=== PATIENT | female | born 1990 | race Caucasian/White ===

== ENCOUNTER 2020-12-23 00:41 | Inpatient (IN) | payer MEDICAID, SELFPAY ==
[~2020-12-23] VITALS: Ht 165.1 cm; Wt 68.7 kg
[2020-12-23 01:08] VITALS: BP_SYST 116
--- NOTE | 2020-12-23 01:15 | NUR ---
Patient to ER bed 1, to gown for evaluation. Side rails up.
[2020-12-23] MEDS ORDERED: MORPHINE 4 MG INJ. 4 MG/ML VIAL IVP ONE ×2 (01:30→02:30)
[2020-12-23] MEDS ORDERED: ONDANSETRON HCL 4 MG/2 ML VIAL IVP ONE ×2 (01:30→02:30)
[2020-12-23] MEDS ORDERED: PANTOPRAZOLE SODIUM 40 MG/VIAL (PROTONIX) IVP ONE (01:30)
--- NOTE | 2020-12-23 01:31 | NUR ---
PT ARRIVED TO ER WITH COMPLAINTS OF ABDOMINAL SINCE 2199. 11/23 PAIN. PT STATES IT IS AN ULCER. SHE HAS HAD THIS ULCER FOR 3 MONTHS. -N/V/D. PT IS IN VISIBLE PAIN.
--- NOTE | 2020-12-23 01:59 | NUR ---
# 20 gauge angiocath placed to LAC. Use of asceptic technique. Opsite placed over site. Blood return noted. Blood for lab drawn from site. Flushed with 10 cc of normal saline. No evidence of infiltration noted. Patient tolerated well.
--- NOTE | 2020-12-23 02:00 | NUR ---
US AT BEDSIDE
[2020-12-23 02:25] LABS: BILIRUBIN,URINE NEGATIVE (NEGATIVE); BLOOD, URINE NEGATIVE (NEGATIVE); CLARITY/URINE CLOUDY (CLEAR); COLOR,URINE YELLOW (YELLOW); GLUCOSE,URINE NEGATIVE (NEGATIVE); KETONES,URINE NEGATIVE (NEGATIVE); LEUKOCYTE ESTERASE ,URINE NEGATIVE (NEGATIVE); NITRITE, URINE NEGATIVE (NEGATIVE); PROTEIN URINE NEGATIVE (NEGATIVE); UROBILINOGEN,URINE 0.2 (0.2-1.0)
[2020-12-23 02:31] LABS: BASOPHILS % (AUTO) 0.3 % (0.0-2.0); EOSINOPHILS # (AUTO) 0.1 K/uL (0.0-0.4); EOSINOPHILS % (AUTO) 0.9 % (0.0-4.0); HEMATOCRIT 36.4 % (36-48); LYMPHOCYTES # (AUTO) 2.9 K/uL (1.0-5.5); LYMPHOCYTES % (AUTO) 25.7 % (20.5-51.5); MEAN CORPUSCULAR HEMOGLOBIN 31 pg (27-31); MEAN CORPUSCULAR HGB CONC 33 % (32-36); MEAN CORPUSCULAR VOLUME 94 fL (79.0-98.0); MONOCYTES # (AUTO) 0.5 K/uL (0.0-1.0); MONOCYTES % (AUTO) 4.1 % (1.7-9.3); NEUTROPHILS # (AUTO) 7.7 K/uL (1.8-7.7); PLATELET COUNT (AUTO) 318 K/uL (130-430); RED BLOOD CELL COUNT(AUTO) 3.89 MIL/uL (4.2-6.2); RED CELL DISTRIBUTION WIDTH 12.8 % (9.0-15.0); WHITE BLOOD COUNT (AUTO) 11.2 K/uL (4.8-10.8)
[2020-12-23 02:35] LABS: CREATININE 0.95 mg/dL (0.55-1.30); POTASSIUM 3.3 mmol/L (3.5-5.1)
[2020-12-23 02:40] LABS: ALBUMIN 3.8 g/dL (3.4-4.8); TOTAL BILIRUBIN 0.2 mg/dL (0.0-1.0)
[2020-12-23] MEDS ORDERED: PRO40 PO (03:03)
[2020-12-23] MEDS ORDERED: FAMO20TA8 PO (03:03)
--- NOTE | 2020-12-23 03:03 | NUR ---
PT IS FULLCODE
--- NOTE | 2020-12-23 03:04 | NUR ---
Medication reconciliation completed with information provided by PATIENT. Any prior medication reconciliation on file was reviewed and corrected.
--- NOTE | 2020-12-23 03:04 | NUR ---
BELONGINGS LIST DONE
--- NOTE | 2020-12-23 04:50 | NUR ---
Patient will be admitted to care of . Admitted to TELE unit. Will go to room 118A. Belongings list completed. Complete and up to date summary report printed. SBAR report to be given at bedside with opportunity for questions.
[2020-12-23] MEDS ORDERED: ACETAMINOPHEN 325 MG TABLET PO PRN (05:00)
[2020-12-23] MEDS ORDERED: ONDANSETRON HCL 4 MG/2 ML VIAL IVP PRN ×2 (05:00→18:30)
[2020-12-23] MEDS ORDERED: MORPHINE 4 MG INJ. 4 MG/ML VIAL IVP PRN ×2 (05:00→19:15)
--- NOTE | 2020-12-23 05:54 | NUR ---
Transfer to TELE via ACLS protocol. Licensed nurse present. IV present no signs or symptoms of infiltration.
--- NOTE | 2020-12-23 06:12 | NUR ---
Admission Note Received patient from ER with diagnosis of CHOLELITHIASIS. Initial Plan of Care discussed-patient verbalized understanding. Oriented to room, call light, pain management and safety.
[2020-12-23 06:29] VITALS: BP_SYST 105
[2020-12-23 07:34] VITALS: BP_SYST 118
[2020-12-23] MEDS: NACL 0.9% 1,000 ML IV SCH ×3 (07:34→20:42)
--- NOTE | 2020-12-23 07:42 | NUR ---
CONSULTATION PAGED/CALLED Reason for Consultation: [] [place] Person Who was Notified: [] DR EDDIE HEART Consulting Physician: [] DR EDDIE HEART, BICYCLE I ASSEMBLER FOR DR Adry ANDERSON Bee Robber Specialty: [] GEN SURGEON Ordering Physician: [] DR IBARRA
--- NOTE | 2020-12-23 08:00 | NUR ---
Patient denies any pain , kept NPO with IV fluid for hydration.
[2020-12-23 08:53] LABS: HCG,QUAL RESULT NEGATIVE (NEGATIVE)
[2020-12-23] MEDS ORDERED: KCL 20 mEq in 100 mL (PREMIX) 100 ML IV ONE (09:00)
[2020-12-23] MEDS: PIPERACILLIN/TAZO 3.375/DEX-IS 50 ML IV SCH ×3 (09:16→17:45)
[2020-12-23] MEDS: PANTOPRAZOLE SODIUM 40 MG/VIAL (PROTONIX) IVP SCH (09:44)
[2020-12-23 09:56] LABS: BASOPHILS % (AUTO) 0.2 % (0.0-2.0); EOSINOPHILS % (AUTO) 0.1 % (0.0-4.0); HEMATOCRIT 37.3 % (36-48); HEMOGLOBIN 12.6 g/dL (12.0-16.0); LYMPHOCYTES # (AUTO) 1.9 K/uL (1.0-5.5); LYMPHOCYTES % (AUTO) 19.6 % (20.5-51.5); MEAN CORPUSCULAR HEMOGLOBIN 31 pg (27-31); MEAN CORPUSCULAR HGB CONC 34 % (32-36); MEAN CORPUSCULAR VOLUME 93 fL (79.0-98.0); MONOCYTES # (AUTO) 0.5 K/uL (0.0-1.0); MONOCYTES % (AUTO) 5.4 % (1.7-9.3); NEUTROPHILS # (AUTO) 7.2 K/uL (1.8-7.7); NEUTROPHILS % (AUTO) 74.7 % (40.0-70.0); PLATELET COUNT (AUTO) 297 K/uL (130-430); RED BLOOD CELL COUNT(AUTO) 4.04 MIL/uL (4.2-6.2); RED CELL DISTRIBUTION WIDTH 12.7 % (9.0-15.0); WHITE BLOOD COUNT (AUTO) 9.7 K/uL (4.8-10.8)
[2020-12-23 10:14] LABS: ALBUMIN 3.4 g/dL (3.4-4.8); CALCIUM 8.9 mg/dL (8.4-11.0); CREATININE 0.83 mg/dL (0.55-1.30); POTASSIUM 3.9 mmol/L (3.5-5.1); TOTAL BILIRUBIN 0.4 mg/dL (0.0-1.0)
[2020-12-23 10:18] LABS: INR 0.9 (0.8-1.2)
[2020-12-23 12:43] VITALS: BP_SYST 111
--- NOTE | 2020-12-23 14:50 | NUR ---
Patient agreed for surgery consent given.
--- NOTE | 2020-12-23 16:00 | NUR ---
Pre operative checklist completed.
[2020-12-23 17:40] VITALS: BP_SYST 122
--- NOTE | 2020-12-23 17:51 | NUR ---
To surgery department for lap vs open cholecystectomy endorsed to OR nurse.
[2020-12-23] MEDS ORDERED: METOCLOPRAMIDE HCL 10 MG/2 ML VIAL IVP PRN (18:30)
[2020-12-23] MEDS ORDERED: fentaNYL CITRATE/PF 100 MCG/2 ML AMP IVP PRN (18:30)
[2020-12-23] MEDS ORDERED: NS IRRIG SOLN 1000 ML IR ONE (19:15)
[2020-12-23] MEDS ORDERED: LR 1,000 ML IV.SOLN IV ONE (19:15)
[2020-12-23] MEDS ORDERED: GLYCOPYRROLATE 0.2 MG/ML VIAL ONE (19:15)
[2020-12-23] MEDS ORDERED: MIDAZOLAM HCL 5 MG/ML VIAL (VERSED) IV ONE (19:15)
[2020-12-23] MEDS ORDERED: BUPIVACAINE /EPINEPHRINE/PF 0.25% 30 ML VIAL INJ ONE (19:15)
[2020-12-23] MEDS ORDERED: PROPOFOL 200MG/ 20ML VIAL (DIPRIVAN) IV ONE (19:15)
[2020-12-23] MEDS ORDERED: ROCURONIUM BROMIDE 10 MG/ML (ZEMURON) ONE (19:15)
[2020-12-23] MEDS ORDERED: SEVOFLURANE 15 MIN GAS INH ONE (19:15)
[2020-12-23] MEDS ORDERED: fentaNYL CITRATE/PF 100 MCG/2 ML AMP ONE ×3 (19:15→20:01)
[2020-12-23] MEDS ORDERED: PHENYLEPHRINE HCL 10 MG/ML VIAL (NEOSYNEPHRINE) ONE (19:15)
[2020-12-23] MEDS ORDERED: HYDROcodone/ACETAMIN 5-325 MG TAB (NORCO/ VICODIN) PO PRN (19:15)
[2020-12-23] MEDS: fentaNYL CITRATE/PF 100 MCG/2 ML AMP IVP PRN ×2 (19:19→19:44)
--- NOTE | 2020-12-23 19:30 | NUR ---
OPENING NOTE PATIENT IS NOT IN THE UNIT OUT FOR SURGERY.
--- NOTE | 2020-12-23 20:10 | NUR ---
PATIENT BACK INTO UNIT RECEIVED REPORT FROM OR NURSE ASSESSED FIRST VITALS ALL WITHIN NORMAL RANGE PATIENT HAS PAIN SCALE OF 7 ON A NUMERIC SCALE OF 0-10 WILL PROVIDE BREAKTHROUGH PAIN MEDICATION. EXPLAINED TO PATIENT WILL PROVIDE BREAKTHROUGH PAIN MEDICATION FOR LOWERING PAIN SCALE.
[2020-12-23] MEDS: HYDROmorphone 2 MG/ML VIAL IVP PRN (20:53)
[2020-12-23 21:03] VITALS: BP_SYST 137
--- NOTE | 2020-12-23 22:46 | NUR ---
SPOKE TO ; DR. IBARRA RECEIVED ORDER FOR ICE CHIPS NOW AND CLEAR LIQUID DIET STARTING TOMORROW.
--- NOTE | 2020-12-24 | NUR ---
PATIENT IS RESTING IN BED NO SIGNS OF DISTRESS. BED IS LOW AND CALL LIGHT IS IN REACH.
[2020-12-24] MEDS: HYDROmorphone 2 MG/ML VIAL IVP PRN (01:02)
[2020-12-24] MEDS: PIPERACILLIN/TAZO 3.375/DEX-IS 50 ML IV SCH ×4 (01:06→18:34)
[2020-12-24 01:08] VITALS: BP_SYST 119
--- NOTE | 2020-12-24 04:00 | NUR ---
PATIENT IS COMFORTABLE ASLEEP NO SIGNS OF DISTRESS. BED IS LOW AND CALL LIGHTS IN REACH.
[2020-12-24] MEDS: NACL 0.9% 1,000 ML IV SCH ×3 (06:30→18:34)
--- NOTE | 2020-12-24 06:49 | NUR ---
CLOSING NOTE PATIENT IS ASLEEP COMFORTABLE NO SIGNS OF PAIN OR DISTRESS. BREATHING ROOM AIR. IV SITE PATENT AND INTACT. BED IS LOW AND CALL LIGHTS IN REACH. WILL ENDORSE TO NEXT SHIFT TO MONITOR PAIN.
[2020-12-24 08:00] VITALS: BP_SYST 114
[2020-12-24] MEDS: PANTOPRAZOLE SODIUM 40 MG/VIAL (PROTONIX) IVP SCH (08:18)
[2020-12-24] MEDS: HYDROcodone/ACETAMIN 5-325 MG TAB (NORCO/ VICODIN) PO PRN ×3 (08:18→21:36)
[2020-12-24 08:40] LABS: ALBUMIN 3.4 g/dL (3.4-4.8); BASOPHILS % (AUTO) 0.2 % (0.0-2.0); CALCIUM 8.5 mg/dL (8.4-11.0); CREATININE 0.99 mg/dL (0.55-1.30); EOSINOPHILS % (AUTO) 0.2 % (0.0-4.0); HEMATOCRIT 38.6 % (36-48); HEMOGLOBIN 12.9 g/dL (12.0-16.0); LYMPHOCYTES # (AUTO) 1.5 K/uL (1.0-5.5); LYMPHOCYTES % (AUTO) 17.4 % (20.5-51.5); MEAN CORPUSCULAR HEMOGLOBIN 31 pg (27-31); MEAN CORPUSCULAR HGB CONC 34 % (32-36); MEAN CORPUSCULAR VOLUME 93 fL (79.0-98.0); MONOCYTES # (AUTO) 0.5 K/uL (0.0-1.0); MONOCYTES % (AUTO) 6.2 % (1.7-9.3); NEUTROPHILS # (AUTO) 6.6 K/uL (1.8-7.7); PLATELET COUNT (AUTO) 296 K/uL (130-430); POTASSIUM 3.8 mmol/L (3.5-5.1); RED BLOOD CELL COUNT(AUTO) 4.13 MIL/uL (4.2-6.2); RED CELL DISTRIBUTION WIDTH 12.7 % (9.0-15.0); TOTAL BILIRUBIN 1.1 mg/dL (0.0-1.0); WHITE BLOOD COUNT (AUTO) 8.7 K/uL (4.8-10.8)
--- NOTE | 2020-12-24 10:00 | NUR ---
assess pt is a/a/ox4 ls cta bs pos in all four quad abd soft but tender to touch did noted four bandaids on abd wall dry and intact s/p lap jesús ble's neg for edema csm good pulses present has an iv site rec'ing ns at 125ml/hr was med time one with norco one tab for abd pain teaching given denies allergy med was effective does void via brp and ate breakfast 50% cl liquid diet monalisa well comfort and safety maintained
[2020-12-24 12:00] VITALS: BP_SYST 122
--- NOTE | 2020-12-24 13:26 | NUR ---
GEN SURGEON, DR Adry ANDERSON WAS CALLED, RE: CLEARANCE TO DISCHARGE PT TO HOME. SPOKE TO KIA.
--- NOTE | 2020-12-24 14:29 | NUR ---
CONSULTATION PAGED/CALLED Reason for Consultation: [] ELEVATED LFT AND BILIRUBIN S/P LAP JEWELL Person Who was Notified: [] [place] Consulting Physician: [] DR LAROSE Jig Grinder Set Up Operator Specialty: [] GI Ordering Physician: [] DR TAPIA PA
[2020-12-24 16:00] VITALS: BP_SYST 118
--- NOTE | 2020-12-24 19:10 | NUR ---
CHANGE OF SHIFT; endorsed by day shift. S/P pilar espinosa 12/23. no distress. call light at bedside.
--- NOTE | 2020-12-24 20:45 | NUR ---
NOTES: pt. awake with visitor at bedside. VS checked. checked abdomen with small iincision with band aids. IV on left antecubital. intructed on deeop breathing. pt. ambulating already. surgeon did not see the pt. suppose to be for discharge if ok nwith the surgeon. pt. needs attended.
[2020-12-24 21:00] VITALS: BP_SYST 113
--- NOTE | 2020-12-24 21:40 | NUR ---
NOTES: pt. medicated for c/o post op abdominal pain, [place] po given.
--- NOTE | 2020-12-25 00:15 | NUR ---
NOTES: pt. sleeping when checked. IV antibiotic due given. repositioned self.
[2020-12-25 00:16] VITALS: BP_SYST 106
[2020-12-25] MEDS: PIPERACILLIN/TAZO 3.375/DEX-IS 50 ML IV SCH ×4 (00:32→17:09)
--- NOTE | 2020-12-25 04:00 | NUR ---
NOTES: pt. sleeping. condition observed, continue to monitor.
[2020-12-25] MEDS: NACL 0.9% 1,000 ML IV SCH ×3 (04:57→22:40)
[2020-12-25] MEDS: HYDROcodone/ACETAMIN 5-325 MG TAB (NORCO/ VICODIN) PO PRN (05:04)
--- NOTE | 2020-12-25 05:10 | NUR ---
NOTES: pt. awakened, ambulated to the restroom. medicated for c/o post op pain.
--- NOTE | 2020-12-25 06:40 | NUR ---
CLOSING NOTES; pt. went back to sleep, noted relief from pain. possible discharge if ok with the surgeon. for further care and assist. will endorse to incoming shift.
--- NOTE | 2020-12-25 08:00 | NUR ---
AAOx4, RA, no s/s of distress. HOB elevated. Patient has an IV on the L AC, intact and patent.. No s/s of infection or infiltration. Educated patient on plan of care and call light use. Fall/safety/isolation precaution. maintained
[2020-12-25] MEDS: PANTOPRAZOLE SODIUM 40 MG/VIAL (PROTONIX) IVP SCH (08:27)
[2020-12-25 12:00] VITALS: BP_SYST 109
[2020-12-25 13:40] LABS: ALBUMIN 2.9 g/dL (3.4-4.8); CALCIUM 8.2 mg/dL (8.4-11.0); CREATININE 0.91 mg/dL (0.55-1.30); POTASSIUM 3.6 mmol/L (3.5-5.1); TOTAL BILIRUBIN 0.3 mg/dL (0.0-1.0)
--- NOTE | 2020-12-25 13:45 | NUR ---
Nutrition Note RD was consulted by pt's primary RN regarding pt's current clear liquid diet order which has been in place for the past 2 days. He stated that pt is POD 2 s/p lap jesús. RD suggested to contact attending or surgeon regarding diet advancement to low-fat diet, and RD will provide low-fat nutrition education at bedside today. Pt was screened at moderate nutritional risk per clinical nutrition policies and procedures. Nutrition Assessment is due between 12/26-12/28.
[2020-12-25 16:15] VITALS: BP_SYST 107
--- NOTE | 2020-12-25 18:00 | NUR ---
Dr. Call ordered patient can be discharged on surgical standpoint; Dr. Mcdonnell is called if the patient can be discharged on GI standpoint, but he insisted that the patient is not clear due to elevated LFTs, and HIDA will still be needed on Sunday. Discharge is held per Charge nurse.
[2020-12-25 21:00] VITALS: BP_SYST 117
[2020-12-26 01:00] VITALS: BP_SYST 125
[2020-12-26] MEDS: PIPERACILLIN/TAZO 3.375/DEX-IS 50 ML IV SCH ×3 (03:43→12:03)
[2020-12-26] MEDS: NACL 0.9% 1,000 ML IV SCH (03:45)
[2020-12-26 08:00] VITALS: BP_SYST 104
[2020-12-26 08:07] LABS: PROTHROMBIN TIME 10.4 SECS (9.5-12.5)
[2020-12-26 08:20] LABS: BASOPHILS % (AUTO) 0.2 % (0.0-2.0); EOSINOPHILS # (AUTO) 0.1 K/uL (0.0-0.4); EOSINOPHILS % (AUTO) 1.7 % (0.0-4.0); HEMATOCRIT 34.7 % (36-48); HEMOGLOBIN 11.7 g/dL (12.0-16.0); LYMPHOCYTES % (AUTO) 30.2 % (20.5-51.5); MEAN CORPUSCULAR HEMOGLOBIN 31 pg (27-31); MEAN CORPUSCULAR HGB CONC 34 % (32-36); MEAN CORPUSCULAR VOLUME 93 fL (79.0-98.0); MONOCYTES # (AUTO) 0.5 K/uL (0.0-1.0); MONOCYTES % (AUTO) 8.1 % (1.7-9.3); NEUTROPHILS # (AUTO) 3.9 K/uL (1.8-7.7); NEUTROPHILS % (AUTO) 59.8 % (40.0-70.0); PLATELET COUNT (AUTO) 256 K/uL (130-430); RED BLOOD CELL COUNT(AUTO) 3.73 MIL/uL (4.2-6.2); RED CELL DISTRIBUTION WIDTH 12.6 % (9.0-15.0); WHITE BLOOD COUNT (AUTO) 6.5 K/uL (4.8-10.8)
[2020-12-26] MEDS: PANTOPRAZOLE SODIUM 40 MG/VIAL (PROTONIX) IVP SCH (08:36)
[2020-12-26 08:39] VITALS: BP_SYST 125
[2020-12-26 09:04] LABS: ALBUMIN 2.7 g/dL (3.4-4.8); BILIRUBIN,DIRECT 0.1 mg/dL (0.0-0.3); C-REACTIVE PROTEIN QUANT 0.7 mg/dL (0-0.5); CALCIUM 8.5 mg/dL (8.4-11.0); CREATININE 0.85 mg/dL (0.55-1.30); POTASSIUM 3.6 mmol/L (3.5-5.1); TOTAL BILIRUBIN 0.5 mg/dL (0.0-1.0)
[2020-12-26 12:00] VITALS: BP_SYST 120
[2020-12-26 12:18] LABS: ERYTHROCYTE SEDIMENTATION RATE 23 MM/HR (0-20)
[2020-12-26 13:38] VITALS: BP_SYST 120
[2020-12-26] MEDS ORDERED: HYDR-3917 PO (13:52)
--- NOTE | 2020-12-26 14:00 | NUR ---
no pain reported on surgical site. discharge instruction and prescription given, discharged ambulatory accompanied by family member.
[2020-12-28 06:06] LABS: HEPATITIS A AB, IgM Negative (Negative); HEPATITIS B CORE AB, IgM Negative (Negative); HEPATITIS B SURFACE AG Negative (Negative)
== END 2020-12-26 14:20 | disposition home or self-care (01) | DRG 263 ==
LOC: SED 00:41 → SMU 04:54
PROVIDERS: ADMIT Internal Medicine Hospice and Palliative Medicine; ATTEND Internal Medicine Hospice and Palliative Medicine
PROC: 0FT44ZZ Resection of Gallbladder, Percutaneous Endoscopic Approach (ICD-10-PCS; principal; 2020-12-23 17:45)
DX: K80.00 Calculus of gallbladder with acute cholecystitis without obstruction (principal); E88.09 Other disorders of plasma-protein metabolism, not elsewhere classified; D64.9 Anemia, unspecified; D72.829 Elevated white blood cell count, unspecified; Z20.822 Contact with and (suspected) exposure to COVID-19; E87.6 Hypokalemia; R73.9 Hyperglycemia, unspecified; R74.01 Elevation of levels of liver transaminase levels; N30.00 Acute cystitis without hematuria; Z79.899 Other long term (current) drug therapy
CPT/HCPCS: 36415; 76376; 76700-TC; 80053; 80074; 80076; 81003; 82150; 83690; 84703; 85025; 85610-TC; 85651-TC; 85730-TC; 86140; 87081; 88304; 94010; 96374; 96375; 96376; 99285; C1727; C9113; J1170; J2250; J2270; J2370; J2405; J2543; J2704; J3010; J3480; J3490; J7120